=== PATIENT | female | born 1970 | race American Indian/Alaskan Native ===

== ENCOUNTER 2018-06-01 08:46 | Observation (INO) | payer BC ==
--- NOTE | 2018-05-27 09:37 | Anesthesia Consultation ---
Anesthesia Consult and Med Hx - Airway Anesthetic Teeth Evaluation: Good ROM Head & Neck: Adequate Mental/Hyoid Distance: Adequate Mallampati Class: Class II Intubation Access Assessment: Good - Pulmonary Exam CTA: Yes - Cardiac Exam Cardiac Exam: RRR - Pre-Operative Health Status ASA Pre-Surgery Classification: ASA3 Proposed Anesthetic Plan: General Nerve Block: TAP - Cardiovascular System Hx Hypertension: Yes (x 10yrs) - Central Nervous System Hx Psychiatric Problems: No - Hematic Hx Anemia: Yes - Other Systems Hx Alcohol Use: Yes (Occas) Hx Cancer: No
[2018-05-27 10:08] LABS: Basophils # (Auto) 0.1 K/mm3 (0.0-0.1); Basophils % (Auto) 0.8 % (0.0-1.8); Eosinophils # (Auto) 0.3 K/mm3 (0.0-0.4); Eosinophils % (Auto) 4.5 % (0.0-4.3); Hematocrit 32.1 % (30.3-42.9); Hemoglobin 10.2 gm/dl (10.1-14.3); Lymphocytes # (Auto) 1.4 K/mm3 (1.2-5.4); Lymphocytes % (Auto) 21.6 % (13.4-35.0); Mean Corpuscular HGB Conc 32 % (30-34); Mean Corpuscular Volume 89 fl (79-97); Monocytes # (Auto) 0.5 K/mm3 (0.0-0.8); Monocytes % (Auto) 7.3 % (0.0-7.3); Platelet Count 362 K/mm3 (140-440); Red Blood Count 3.63 M/mm3 (3.65-5.03); Red Cell Distribution Width 18.7 % (13.2-15.2)
[2018-05-27 10:09] LABS: BUN/Creatinine Ratio 11; Blood Urea Nitrogen 9 mg/dL (7-17); Calcium 8.7 mg/dL (8.4-10.2); Hemolysis Index 4
[~2018-06-01 08:46] MED LIST: LACTATED RINGERS 1,000 ML IV SCH; NEURONTIN PO NR; SUBLIMAZE IV PRN; TYLENOL PO NR; VERSED IV NR
[2018-06-01] MEDS ORDERED: DECADRON ONE (09:59)
[2018-06-01] MEDS ORDERED: MARCAINE 0.25% INFILTRATI ONE (09:59)
[2018-06-01] MEDS ORDERED: ANCEF/STERILE WATER 2 GM/20 ML 2 GM/20 ML SYRINGE IV NR (10:00)
--- NOTE | 2018-06-01 10:03 | History and Physical Report ---
History of Present Illness Date of examination: 06/01/18 Chief complaint: Symptomatic uterine fibroids History of present illness: Patient is a 48-year-old black female LMP 05/22/2018 presents for surgical evaluation and treatment of symptomatic uterine fibroids. She complains of prolonged heavy vaginal bleeding and pelvic pain, and was hospitalized for a blood transfusion due to severe anemia. Pelvic ultrasound showed the uterus to be enlarged measuring 8.0 x 5.4 x 6.1 cm with several large fibroids - largest measuring 5.63.74.8 cm She desires ovarian conservation and a Robotic- Assisted Total Hysterectomy. 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 History: fibroids Social history: no significant social history, single Medications and Allergies Allergies Allergy/AdvReac Type Severity Reaction Status Date / Time No Known Allergies Allergy Unverified 05/25/18 12:13 Home Medications Medication Instructions Recorded Confirmed Last Taken Type Ferrous Sulfate [Feosol 325 MG tab] 325 mg PO DAILY 06/01/18 06/01/18 05/31/18 History Furosemide [Lasix TAB] 20 mg PO DAILY 06/01/18 06/01/18 05/31/18 History NIFEdipine [Nifedipine ER] 60 mg PO DAILY 06/01/18 06/01/18 06/01/18 06:30 History Potassium Chloride 20 meq PO DAILY 06/01/18 06/01/18 05/31/18 History Active Meds: Active Medications Celecoxib (Celebrex) 200 mg PO PREOP NR Stop: 06/01/18 16:00 Fentanyl (Sublimaze) 100 mcg IV ONCE PRN PRN Reason: sedation for nerve block Stop: 06/01/18 16:00 Gabapentin (Neurontin) 300 mg PO PREOP NR Stop: 06/01/18 16:00 Lactated Ringer's (Lactated Ringers) 1,000 mls @ 42 mls/hr IV DIRECT LESLIE Midazolam HCl (Versed) 2 mg IV PREOP NR Stop: 06/01/18 16:00 Review of Systems All systems: negative Genitourinary: vaginal bleeding, pelvic pain - Vital Signs Vital signs: Vital Signs Temp Pulse Resp BP Pulse Ox 97.6 F 93 H 20 172/92 100 05/27/18 09:20 05/27/18 09:20 05/27/18 09:20 05/27/18 09:20 05/27/18 09:20 Temp Pulse Resp BP Pulse Ox 97.6 F 93 H 20 172/92 100 05/27/18 09:20 05/27/18 09:20 05/27/18 09:20 05/27/18 09:20 05/27/18 09:20 - Physical Exam Breasts: Positive: deferred Cardiovascular: Regular rate Lungs: Positive: Clear to auscultation Abdomen: Positive: normal appearance Genitourinary (Female): Positive: normal external genitalia Vagina: Positive: normal moisture Uterus: Positive: enlarged (16 weeks size) Adnexa: both: normal Extremities: Positive: normal Results Result Diagrams: 05/27/18 09:30 05/27/18 09:30 All other labs normal. Ultrasound: report reviewed Assessment and Plan - Patient Problems (1) Uterine fibroid Onset Date: 06/01/18 Current Visit: Yes Status: Acute Qualifiers: Uterine leiomyoma location: intramural, submucous, and subserous Qualified Code(s): D25.1 - Intramural leiomyoma of uterus; D25.0 - Submucous leiomyoma of uterus; D25.2 - Subserosal leiomyoma of uterus Plan to address problem: A: Symptomatic uterine fibroids Menorrhagia P: Admit for a Robotic-Assisted Total Hysterectomy with Bilateral salpingectomy (2) Menorrhagia with regular cycle Onset Date: 06/01/18 Current Visit: Yes Status: Acute
--- NOTE | 2018-06-01 10:07 | Anesthesia Day of Surgery ---
Anesthesia Day of Surgery - Day of Surgery Patient Examined: Yes Patient H&P Reviewed: Yes Patient is NPO: Yes
[2018-06-01] MEDS ORDERED: DILAUDID IV PRN (10:30)
[2018-06-01] MEDS ORDERED: DILAUDID ONE (10:49)
[2018-06-01] MEDS ORDERED: DIPRIVAN 10 MG/ML IV ONE (10:49)
[2018-06-01] MEDS ORDERED: NEOSPORIN GU IR ONE ×2 (10:50→14:30)
[2018-06-01] MEDS ORDERED: XYLOCAINE MPF 2% ONE (10:50)
[2018-06-01] MEDS ORDERED: ZEMURON IV ONE (10:50)
[2018-06-01] MEDS ORDERED: QUELICIN ONE (10:50)
[2018-06-01] MEDS ORDERED: NACL 0.9% IR ONE ×2 (14:30)
[2018-06-01] MEDS ORDERED: LACTATED RINGERS 1,000 ML ONE ×3 (14:35→16:40)
[2018-06-01] MEDS ORDERED: ZOFRAN IV PRN (14:45)
[2018-06-01] MEDS ORDERED: ZOFRAN ONE (14:45)
[2018-06-01] MEDS ORDERED: NORCO 5/325 PO PRN (14:45)
[2018-06-01] MEDS ORDERED: MILK OF MAGNESIA PO PRN (14:45)
[2018-06-01] MEDS ORDERED: TORADOL ONE (14:46)
[2018-06-01] MEDS ORDERED: ROBINUL ONE (14:46)
[2018-06-01] MEDS ORDERED: BLOXIVERZ ONE (14:46)
[2018-06-01] MEDS ORDERED: D5LR 1,000 ML IV SCH (15:00)
--- NOTE | 2018-06-01 15:08 | Operative Report ---
Operative Report Operative Report: Date of procedure: 06/01/2018 Pre-operative diagnosis: 1. Symptomatic uterine fibroids 2. Menorrhagia Post-operative diagnosis: Same Procedure name(s): 1. Robotic-Assisted Total hysterectomy 2. Bilateral salpingectomy Surgeon: Juice Bernal MD Traveling Construction Superintendent: Minerva Knowles CSA Anesthesia: ORALIA Block followed by general endotracheal intubation by Dr. Segovia EBL: 100 mL Findings: A 16 week size multiple myomatous uterus with tubes showed evidence of previous tubal ligation bilaterally, and normal ovaries bilaterally. Procedure: After the patient's first correctly identified she was prepped and draped in the usual sterile fashion and placed in the dorsolithotomy position. The bladder was first catheterized using Youngblood catheter and the speculum was placed in the vagina and the anterior lip of the cervix was grasped using a single-tooth tenaculum, and the medium Vesicare cup was placed. The tenaculum and speculum was then removed from the vagina and attention was then turned to the abdomen. The skin knife was used to make a small incision approximately 5 cm above the umbilicus through which a 12 mm trocar was placed under direct visualization. After adequate amount of abdominal insufflation visualization of the pelvic organs found the uterus to be enlarged and the tubes showed evidence of previous tubal ligation bilaterally, and ovaries are normal bilaterally. A right and left paramedian incision was made through which the 8 mm trochars were placed under direct visualization and a 5 mm trocar was placed in the right upper quadrant. The patient was then placed in steep Trendelenburg positioning and the robot was docked on the patient's left side. After all the robotic por ts were connected and adequate functioning of the robotic arms were tested the surgeon then proceeded to the console to begin the hysterectomy. First the left round ligament was grasped, cauterized and cut, the left utero- ovarian ligaments were grasped, cauterized and cut, and the left fallopian tube also grasped, cauterized and cut along the mesosalpinx, thus freeing the left ovary from the left uterine sidewall. The same procedure was performed on the right. The right round ligament was grasped, cauterized and cut, the right utero-ovarian ligaments were grasped, cauterized and cut, and the right fallopian tube also grasped, cauterized and cut along the mesosalpinx, thus freeing the right ovary from the right uterine sidewall. The bladder flap was taken down anteriorly and the uterine vessels were grasped, cauterized and cut bilaterally. The cardinal ligaments were sequentially grasped, cauterized and cut down to the level of the uterosacral ligaments. At this time the posterior colpotomy was performed over the Vcare cup, and the cervix was circumscribed beginning posteriorly and meeting anteriorly until the cervix was freed. The uterus was bivalved, and then the cervix and uterus was then removed through the vagina and sent to pathology. The vaginal cuff was then closed using 2-0 Vloc suture in a running fashion. Irrigation was then performed and after good hemostasis was achieved the procedure was considered complete. The Tisseel sealant was then sprayed across the vaginal cuff site, and after excellent hemostasis was assured Interceed was placed across the vaginal cuff site. The abdominal pressure was reduced to 5 mmHg, and excellent hemostasis was assured. All instruments were then removed from the abdominal cavity. And each incision was closed using 0 Vicryl suture in a [id number] configuration on the fascia followed by 4-0 Monocryl suture in a sub-cuticular fashion on the skin. Each incision was also infiltrated using 0.5% Marcaine solution. The vaginal pack was removed. The patient tolerated the procedure well and was transported to the recovery room in stable condition.
[2018-06-01] MEDS ORDERED: LASIX IV ONE (16:13)
[2018-06-01] MEDS ORDERED: LASIX ONE (16:16)
[2018-06-01 17:04] LABS: BUN/Creatinine Ratio 10; Blood Urea Nitrogen 8 mg/dL (7-17); Calcium 8.6 mg/dL (8.4-10.2); Hemolysis Index 13
--- NOTE | 2018-06-01 18:04 | Post Anesthesia Evaluation ---
- Post Anesthesia Evaluation Patient Participated: Yes Airway Patent: Yes Stable Respiratory Function: Yes Nausea/Vomiting: No Temp > 96.8F: Yes Pain Manageable: Yes Adequeate Hydration: Yes Anesthesia Complications: No
[2018-06-01] MEDS: PERCOCET 5/325 PO PRN (18:54)
[2018-06-01] MEDS: TORADOL IV SCH (20:57)
[2018-06-01] MEDS: ANCEF/NS 1 GM/50 ML 1 GM/50 ML BAG IV SCH (21:06)
[2018-06-01] MEDS: PROCARDIA XL PO SCH (23:03)
[2018-06-02] MEDS: TORADOL IV SCH (04:16)
[2018-06-02] MEDS: ANCEF/NS 1 GM/50 ML 1 GM/50 ML BAG IV SCH (04:25)
[2018-06-02] MEDS ORDERED: ANCEF/NS 1 GM/50 ML 1 GM/50 ML BAG IV SCH (05:00)
--- NOTE | 2018-06-02 08:01 | Progress Note ---
Assessment and Plan - Patient Problems (1) Uterine fibroid Onset Date: 06/01/18 Current Visit: Yes Status: Resolved Qualifiers: Uterine leiomyoma location: intramural, submucous, and subserous Qualified Code(s): D25.1 - Intramural leiomyoma of uterus; D25.0 - Submucous leiomyoma of uterus; D25.2 - Subserosal leiomyoma of uterus (2) Menorrhagia with regular cycle Onset Date: 06/01/18 Current Visit: Yes Status: Resolved (3) Status post robot-assisted surgical procedure Onset Date: 06/02/18 Current Visit: Yes Status: Resolved Plan to address problem: A: S/P RATH - POD #1 Doing well P: May go home today. Subjective - Subjective Date of service: 06/02/18 Principal diagnosis: s/p RATH - POD #1 Interval history: Patient is a 48-year-old black female LMP 05/22/2018 presents for surgical evaluation and treatment of symptomatic uterine fibroids. She complains of prolonged heavy vaginal bleeding and pelvic pain, and was hospitalized for a blood transfusion due to severe anemia. Pelvic ultrasound showed the uterus to be enlarged measuring 8.0 x 5.4 x 6.1 cm with several large fibroids - largest measuring 5.63.74.8 cm She desires ovarian conservation and a Robotic- Assisted Total Hysterectomy. Objective - Vital Signs Latest vital signs: Vital Signs Temp Pulse Resp Resp BP BP Pulse Ox 06/02/18 06:24 98.9 F 103 H 20 133/84 92 06/02/18 04:16 20 06/02/18 00:54 97.9 F 106 H 20 137/84 93 06/01/18 21:03 98.3 F 91 H 20 153/94 97 06/01/18 20:57 18 06/01/18 18:54 18 06/01/18 17:35 97.4 F L 69 20 141/86 141/86 94 06/01/18 17:30 20 06/01/18 17:10 67 16 133/80 96 06/01/18 16:55 97.6 F 71 18 137/83 96 06/01/18 16:40 77 18 138/66 96 06/01/18 16:25 69 16 138/65 100 06/01/18 16:10 83 20 136/88 100 06/01/18 15:55 97.4 F L 68 17 131/81 100 06/01/18 15:40 82 19 134/82 100 06/01/18 15:25 75 16 123/78 100 06/01/18 15:10 75 17 116/75 100 06/01/18 15:05 78 15 122/66 100 06/01/18 15:00 71 16 112/59 96 06/01/18 14:57 97.0 F L 72 15 103/62 96 06/01/18 11:41 69 16 126/80 100 06/01/18 11:36 79 19 132/85 99 06/01/18 11:31 77 18 138/87 99 06/01/18 11:26 77 19 134/84 100 06/01/18 11:21 75 18 130/82 99 06/01/18 11:16 76 19 126/83 99 06/01/18 11:11 74 18 135/84 100 06/01/18 11:06 74 19 132/81 100 06/01/18 11:01 71 17 147/84 100 06/01/18 10:56 72 15 136/93 98 06/01/18 10:51 74 20 145/91 100 06/01/18 09:40 98.4 F 89 24 149/93 100 Intake and Output 06/01/18 06/02/18 06/02/18 22:59 06:59 14:59 Intake Total 1100 290 Output Total 530 1700 Balance 570 -1410 Intake: IV 1100 50 ANCEF/NS 1 GM/50 ML 1 gm 50 In 50 ml @ 100 mls/hr IV Q8H [facility] Rx#:[id number] Oral 240 Output: Urine 530 1700 Indwelling Catheter 1700 Other: Total, Intake Amount 120 Total, Output Amount 600 Voiding Method Indwelling Catheter - Exam Breasts: Present: deferred Abdomen: Present: normal appearance, soft Extremities: Present: normal Incision: Present: normal, dry, intact - Labs Labs: Abnormal lab results 06/01/18 Range/Units 16:36 Glucose 134 H (65-100) mg/dL Laboratory Tests 05/27/18 05/27/18 05/27/18 09:30 09:30 09:30 WBC 6.3 RBC 3.63 L Hgb 10.2 Hct 32.1 MCV 89 MCH 28 MCHC 32 RDW 18.7 H Plt Count 362 Lymph % (Auto) 21.6 Roosevelt % (Auto) 7.3 Eos % (Auto) 4.5 H Baso % (Auto) 0.8 Lymph # 1.4 Roosevelt # 0.5 Eos # 0.3 Baso # 0.1 Seg Neutrophils % 65.8 Seg Neutrophils # 4.2 Sodium 138 Potassium 4.0 Chloride 101.6 Carbon Dioxide 27 Anion Gap 13 BUN 9 Creatinine 0.8 Estimated GFR > 60 BUN/Creatinine Ratio 11 Glucose 102 H Calcium 8.7 HCG, Qual Negative Blood Type Antibody Screen 06/01/18 06/01/18 10:02 16:36 WBC RBC Hgb Hct MCV MCH MCHC RDW Plt Count Lymph % (Auto) Roosevelt % (Auto) Eos % (Auto) Baso % (Auto) Lymph # Roosevelt # Eos # Baso # Seg Neutrophils % Seg Neutrophils # Sodium 139 Potassium 4.5 Chloride 104.5 Carbon Dioxide 25 Anion Gap 14 BUN 8 Creatinine 0.8 Estimated GFR > 60 BUN/Creatinine Ratio 10 Glucose 134 H Calcium 8.6 HCG, Qual Blood Type A POSITIVE Antibody Screen Negative
--- NOTE | 2018-06-02 08:04 | Discharge Summary ---
Providers - Providers Date of Admission: 06/01/18 14:45 Date of discharge: 06/02/18 Attending physician: JENNIFER PEDRO Primary care physician: GENO MONTEMAYOR MD Hospitalization Reason for admission: other (Symptomatic uterine fibroids; Menorrhagia) Procedure: other (Robotic Assisted Total Hysterectomy with Bilateral salpingectomy) Laceration: none Incision: normal, dry, intact Other procedures: none complications: none Discharge diagnosis: other (s/p RATH) Hospital course: Patient is a 48-year-old black female LMP 05/22/2018 who presented for surgical evaluation and treatment of symptomatic uterine fibroids. She complained of prolonged heavy vaginal bleeding and pelvic pain, and was hospitalized for a blood transfusion due to severe anemia. Pelvic ultrasound showed the uterus to be enlarged measuring 8.0 x 5.4 x 6.1 cm with several large fibroids - largest measuring 5.63.74.8 cm She underwent an uncomplicated Robotic-Assisted Total Hysterectomy with Bilateral Salpingectomy. By POD #1 she was tolerating a reg diet without nausea or vomiting, ambulating and voiding without difficulty. She was therefore discharged to home on POD #1 in stable condition. Condition at discharge: Good Disposition: DC-01 TO HOME OR SELFCARE - Discharge Diagnoses (1) Uterine fibroid Status: Resolved Qualifiers: Uterine leiomyoma location: intramural, submucous, and subserous Qualified Code(s): D25.1 - Intramural leiomyoma of uterus; D25.0 - Submucous leiomyoma of uterus; D25.2 - Subserosal leiomyoma of uterus (2) Menorrhagia with regular cycle Status: Resolved (3) Status post robot-assisted surgical procedure Status: Resolved Plan - Discharge Medications Prescriptions: Ibuprofen [Motrin] 800 mg PO Q8HR PRN #30 tablet PRN Reason: Pain, Mild (1-3) oxyCODONE /ACETAMINOPHEN [Percocet 5/325 mg] 1 tab PO Q6H PRN #30 tablet PRN Reason: Pain, Moderate (4-6) NIFEdipine XL [Procardia Xl] 60 mg PO QDAY #30 tablet - Provider Discharge Summary Activity: routine, no sex for 6 weeks, no heavy lifting 4 weeks, no strenuous exercise Diet: routine Instructions: routine Additional instructions: [] Smoking cessation referral if applicable(refer to patient education folder for contact #) [] Refer to [facility]'s [facility] Booklet Call your doctor immediately for: * Fever > 100.5 * Heavy vaginal bleeding ( >1 pad per hour) * Severe persistent headache * Shortness of breath * Reddened, hot, painful area to leg or breast * Drainage or odor from incision. * Keep incision clean and dry at all times and follow doctor's instructions regarding bathing/showering - Follow up plan Follow up: GENO MONTEMAYOR MD [Primary Care Provider] - 14 Days JENNIFER PEDRO MD [Staff Physician] - 14 Days
[2018-06-02 08:41] LABS: Hematocrit 26.7 % (30.3-42.9); Hemoglobin 8.7 gm/dl (10.1-14.3)
[2018-06-02] MEDS: PERCOCET 5/325 PO PRN (10:55)
[2018-06-02] MEDS: PROCARDIA XL PO SCH (10:55)
[2018-06-02] MEDS ORDERED: MYLICON PO PRN (11:45)
[2018-06-02 14:34] VITALS: BP 125/84
== END 2018-06-02 15:00 | disposition home or self-care (01) ==
LOC: OR 08:46 → OB 14:45
PROVIDERS: ADMIT Obstetrics & Gynecology; ATTEND Obstetrics & Gynecology
DX: D25.9 Leiomyoma of uterus, unspecified (principal); N92.0 Excessive and frequent menstruation with regular cycle; I10 Essential (primary) hypertension
CPT/HCPCS: 36415; 58572; 64450; 80048; 84703; 85014; 85018; 85025; 86850; 86900; 86901; 88302; 88307; 96365; 96366; 96375; 96376; A4217; C1765; C9250; G0378; J0330; J0690; J1100; J1170; J1885; J1940; J2250; J2405; J2704; J2710; J3010; J7120; J7121; S2900